=== PATIENT | female | born 1970 | race Caucasian/White ===

== ENCOUNTER 2017-06-09 08:40 | Inpatient (IN) | payer OTHER ==
[2017-06-09 09:08] LABS: ADD MAN DIFF? NO
[2017-06-09 09:11] LABS: BASO # 0.1 x10^3/uL (0.0-0.2); BASO % 1 % (0-3); EOS # 0.1 x10^3/uL (0.0-0.7); EOS % 1 % (0-3); HEMOGLOBIN 15.1 g/dL (12.0-15.5); LYMPH # 2.3 x10^3/uL (1.0-4.8); LYMPH % 22 % (24-48); MEAN CORPUSCULAR HEMOGLOBIN 31 pg (25-35); MEAN CORPUSCULAR HGB CONC 34 g/dL (31-37); MEAN CORPUSCULAR VOLUME 90 fL (79-100); MONO # 0.8 x10^3/uL (0.0-1.1); MONO % 8 % (0-9); NEUT % 68 % (31-73); PLATELET COUNT 251 x10^3/uL (140-400); RED BLOOD COUNT 4.88 x10^6/uL (3.50-5.40); RED CELL DISTRIBUTION WIDTH 12.8 % (11.5-14.5); WHITE BLOOD COUNT 10.2 x10^3/uL (4.0-11.0)
[2017-06-09 09:13] LABS: BILIRUBIN,URINE NEGATIVE (NEG); CLARITY,URINE CLEAR; COLOR,URINE YELLOW; GLUCOSE,URINE NEGATIVE (NEG); NITRITE,URINE NEGATIVE (NEG); PROTEIN,URINE NEGATIVE (NEG-TRACE); UROBILINOGEN,URINE 0.2 mg/dL (0.2 mg/dL)
[2017-06-09] MEDS: ONDANSETRON PF 4 MG/2 ML VIAL. IV ×2 (09:18→12:14)
[2017-06-09] MEDS: FAMOTIDINE 20 MG/2 ML VIAL IVP (09:18)
[2017-06-09] MEDS: IV NORMAL SALINE 1000ML BAG 1,000 ML IV ×2 (09:18→12:14)
[2017-06-09] MEDS: fentaNYL PF VIAL 100 MCG/2 ML VIAL IV ×5 (09:19→20:12)
[2017-06-09 09:20] LABS: AMPHETAMINE/METHAMPHETAMINE NEG (NEG); ANION GAP 11 (6-14); BARBITURATES NEG (NEG); BENZODIAZEPINES NEG (NEG); BLOOD UREA NITROGEN 17 mg/dL (7-20); BUN/CREATININE RATIO 19 (6-20); CALCIUM 9.1 mg/dL (8.5-10.1); CANNABINOIDS POS (NEG); CARBON DIOXIDE 27 mmol/L (21-32); CHLORIDE 102 mmol/L (98-107); COCAINE NEG (NEG); CREATININE 0.9 mg/dL (0.6-1.0); ETHANOL, URINE NEG (NEG); GFR 67.1; GLUCOSE 89 mg/dL (70-99); METHADONE NEG (NEG); OPIATES NEG (NEG); PHENCYCLIDINE NEG (NEG); POTASSIUM 3.7 mmol/L (3.5-5.1); SODIUM 140 mmol/L (136-145)
[2017-06-09 09:22] LABS: ETHANOL < 10 mg/dL (0-10)
[2017-06-09 09:23] LABS: BACTERIA,URINE 0 /HPF (0-FEW); RBC,URINE 0 /HPF (0-2); SQUAMOUS EPITHELIAL CELL,UR MANY /LPF; WBC,URINE 0 /HPF (0-4)
[2017-06-09 09:26] LABS: ALK PHOS 96 U/L (46-116); ALT (SGPT) 20 U/L (14-59); AST (SGOT) 14 U/L (15-37); LIPASE 133 U/L (73-393); TOTAL BILIRUBIN 0.4 mg/dL (0.2-1.0); TOTAL PROTEIN 7.9 g/dL (6.4-8.2)
[2017-06-09 11:56] LABS: PLT ESTIMATE ADEQUATE (ADEQUATE)
[2017-06-09] MEDS ORDERED: ceFAZolin 2GM PREMIX 2 GM/50 ML BAG IV (12:00)
[2017-06-09] MEDS: PANTOPRAZOLE IV PUSH 40 MG VIAL. IVP (17:48)
[2017-06-10] MEDS: fentaNYL PF VIAL 100 MCG/2 ML VIAL IV ×5 (00:16→09:47)
[2017-06-10] MEDS: IV NORMAL SALINE 1000ML BAG 1,000 ML IV ×3 (03:53→20:03)
[2017-06-10 05:08] LABS: ADD MAN DIFF? NO
[2017-06-10 05:17] LABS: BASO # 0.1 x10^3/uL (0.0-0.2); BASO % 1 % (0-3); EOS # 0.2 x10^3/uL (0.0-0.7); EOS % 2 % (0-3); HEMATOCRIT 37.3 % (36.0-47.0); HEMOGLOBIN 12.6 g/dL (12.0-15.5); LYMPH # 2.1 x10^3/uL (1.0-4.8); LYMPH % 27 % (24-48); MEAN CORPUSCULAR HEMOGLOBIN 31 pg (25-35); MEAN CORPUSCULAR HGB CONC 34 g/dL (31-37); MEAN CORPUSCULAR VOLUME 92 fL (79-100); MONO # 0.8 x10^3/uL (0.0-1.1); MONO % 10 % (0-9); NEUT # 4.7 x10^3uL (1.8-7.7); NEUT % 60 % (31-73); PLATELET COUNT 178 x10^3/uL (140-400); RED BLOOD COUNT 4.07 x10^6/uL (3.50-5.40); RED CELL DISTRIBUTION WIDTH 12.5 % (11.5-14.5); WHITE BLOOD COUNT 7.9 x10^3/uL (4.0-11.0)
[2017-06-10 05:54] LABS: ALK PHOS 69 U/L (46-116); ALT (SGPT) 15 U/L (14-59); ANION GAP 7 (6-14); AST (SGOT) 11 U/L (15-37); BLOOD UREA NITROGEN 14 mg/dL (7-20); BUN/CREATININE RATIO 18 (6-20); CALCIUM 8.3 mg/dL (8.5-10.1); CARBON DIOXIDE 26 mmol/L (21-32); CHLORIDE 110 mmol/L (98-107); CREATININE 0.8 mg/dL (0.6-1.0); GFR 76.9; GLUCOSE 92 mg/dL (70-99); SODIUM 143 mmol/L (136-145); TOTAL BILIRUBIN 0.4 mg/dL (0.2-1.0); TOTAL PROTEIN 5.9 g/dL (6.4-8.2)
[2017-06-10] MEDS ORDERED: SURGICEL HEMOSTAT 2X3 EACH. (06:04)
[2017-06-10] MEDS ORDERED: fentaNYL PF VIAL 100 MCG/2 ML VIAL IV ×2 (07:00)
[2017-06-10] MEDS ORDERED: LIDOCAINE 1% PF 2 ML VIAL. ID (07:00)
[2017-06-10] MEDS ORDERED: ONDANSETRON PF 4 MG/2 ML VIAL. IV ×2 (07:00→14:00)
[2017-06-10] MEDS: PANTOPRAZOLE IV PUSH 40 MG VIAL. IVP ×2 (07:30→11:17)
[2017-06-10] MEDS ORDERED: fentaNYL PF VIAL 100 MCG/2 ML VIAL (07:42)
[2017-06-10] MEDS ORDERED: MIDAZOLAM HCL/PF 2 MG/2 ML VIAL. (07:42)
[2017-06-10] MEDS ORDERED: PROPOFOL 20 ML IV (07:42)
[2017-06-10] MEDS ORDERED: ONDANSETRON PF 4 MG/2 ML VIAL. (07:42)
[2017-06-10] MEDS ORDERED: DEXAMETHASONE SOD PHOS 20 MG/5 ML VIAL. (07:42)
[2017-06-10] MEDS ORDERED: SUCCINYLCHOLINE 200 MG/10 ML VIAL. (07:43)
[2017-06-10] MEDS ORDERED: ROCURONIUM 50 MG/5 ML VIAL. (07:43)
[2017-06-10] MEDS: BUPIVACAINE-EPI 0.25%-1:200000 50 ML VIAL. (08:30)
[2017-06-10] MEDS: IOHEXOL 300 MG/ML 100ML VIAL. (08:30)
[2017-06-10] MEDS: BISACODYL 10 MG SUPP.RECT. (08:30)
[2017-06-10] MEDS: HEPARIN for IV BOLUS 10,000 UNIT/10 ML VIAL. (08:30)
[2017-06-10] MEDS ORDERED: NEOSTIGMINE 10 MG/10 ML VIAL. (08:50)
[2017-06-10] MEDS ORDERED: KETOROLAC 30 MG/ML INJ FOR OR. INJ ×2 (08:50→09:22)
[2017-06-10] MEDS ORDERED: GLYCOPYRROLATE 1 MG/5 ML VIAL. (08:50)
[2017-06-10] MEDS ORDERED: 0.9 % SODIUM CHLORIDE 10 ML DISP.SYRIN. IV (09:15)
[2017-06-10] MEDS ORDERED: KETOROLAC 15 MG/ML VIAL. IV (09:15)
[2017-06-10] MEDS ORDERED: DEXTROSE 50% 25 GM / 50ML DISP.SYRIN. IV (09:15)
[2017-06-10] MEDS ORDERED: SEVOFLURANE 61 TO 120 MINUTES. IH (09:22)
[2017-06-10] MEDS: PROCHLORPERAZINE 10 MG/2 ML VIAL. IV ×2 (09:32→09:56)
[2017-06-10] MEDS: IV RINGERS,LACTATED 1000ML 1,000 ML IV ×3 (09:32→20:08)
[2017-06-10] MEDS: MORPHINE SULFATE 4 MG/ML DISP.SYRIN. IV ×3 (09:56→18:43)
[2017-06-10] MEDS: HYDROcodone/APAP 5/325MG 1 TAB TABLET PO ×3 (13:31→21:44)
[2017-06-10] MEDS ORDERED: DOCUSATE SODIUM 100 MG CAPSULE. PO (14:00)
[2017-06-10] MEDS ORDERED: ACETAMINOPHEN 325 MG TABLET. PO (14:00)
[2017-06-10] MEDS ORDERED: MORPHINE SULFATE 4 MG/ML DISP.SYRIN. IV (14:00)
[2017-06-10] MEDS ORDERED: hydrALAZINE 20 MG/ML VIAL. IVP (14:00)
[2017-06-10] MEDS: LISINOPRIL 20 MG TABLET PO (14:56)
[2017-06-10] MEDS: hydroCHLOROthiazide 12.5 MG CAPSULE PO (14:56)
[2017-06-10] MEDS: DOCUSATE SODIUM 100 MG CAPSULE. PO (20:08)
[2017-06-10] MEDS ORDERED: NON FORMULARY ITEM (Omeprazole Magnesium (Prilosec Otc) 1 TAB) PO (21:00)
[2017-06-10] MEDS: ONDANSETRON PF 4 MG/2 ML VIAL. IV (21:46)
[2017-06-10] MEDS: ZOLPIDEM 5 MG TABLET. PO (23:41)
[2017-06-11] MEDS: HYDROcodone/APAP 5/325MG 1 TAB TABLET PO ×3 (04:12→20:46)
[2017-06-11] MEDS: IV RINGERS,LACTATED 1000ML 1,000 ML IV (05:10)
[2017-06-11 05:38] LABS: BASO % 0 % (0-3); EOS % 0 % (0-3); HEMATOCRIT 38.1 % (36.0-47.0); HEMOGLOBIN 12.5 g/dL (12.0-15.5); LYMPH # 1.5 x10^3/uL (1.0-4.8); LYMPH % 7 % (24-48); MEAN CORPUSCULAR HEMOGLOBIN 30 pg (25-35); MEAN CORPUSCULAR HGB CONC 33 g/dL (31-37); MEAN CORPUSCULAR VOLUME 91 fL (79-100); MONO # 1.4 x10^3/uL (0.0-1.1); MONO % 6 % (0-9); NEUT # 19.1 x10^3uL (1.8-7.7); NEUT % 87 % (31-73); PLATELET COUNT 219 x10^3/uL (140-400); RED CELL DISTRIBUTION WIDTH 12.5 % (11.5-14.5)
[2017-06-11 05:44] LABS: ADD MAN DIFF? YES
[2017-06-11 05:52] LABS: ANION GAP 8 (6-14); BLOOD UREA NITROGEN 13 mg/dL (7-20); CALCIUM 9.1 mg/dL (8.5-10.1); CARBON DIOXIDE 29 mmol/L (21-32); CHLORIDE 103 mmol/L (98-107); CREATININE 0.9 mg/dL (0.6-1.0); GFR 67.1; GLUCOSE 128 mg/dL (70-99); POTASSIUM 3.5 mmol/L (3.5-5.1); SODIUM 140 mmol/L (136-145)
[2017-06-11] MEDS: DOCUSATE SODIUM 100 MG CAPSULE. PO ×2 (09:21→20:46)
[2017-06-11] MEDS: hydroCHLOROthiazide 12.5 MG CAPSULE PO (09:21)
[2017-06-11] MEDS: LISINOPRIL 20 MG TABLET PO (09:22)
[2017-06-11] MEDS: MORPHINE SULFATE 4 MG/ML DISP.SYRIN. IV (09:27)
[2017-06-11] MEDS: ONDANSETRON PF 4 MG/2 ML VIAL. IV ×2 (10:02→18:02)
[2017-06-11 10:17] LABS: % ATYL 1 % (0-0); % BANDS 15 % (0-9); % LYMPHS 8 % (24-48); % MONOS 4 % (0-10); % SEGS 72 % (35-66); PLT ESTIMATE ADEQUATE (ADEQUATE)
[2017-06-11] MEDS: IV NORMAL SALINE 1000ML BAG 1,000 ML IV (17:20)
[2017-06-11] MEDS: diphenhydrAMINE HCL 25 MG CAPSULE PO (17:59)
[2017-06-12] MEDS: HYDROcodone/APAP 5/325MG 1 TAB TABLET PO (04:42)
[2017-06-12 05:20] LABS: ADD MAN DIFF? NO
[2017-06-12 05:35] LABS: BASO # 0.1 x10^3/uL (0.0-0.2); BASO % 1 % (0-3); EOS # 0.2 x10^3/uL (0.0-0.7); EOS % 1 % (0-3); HEMATOCRIT 35.4 % (36.0-47.0); LYMPH # 2.9 x10^3/uL (1.0-4.8); LYMPH % 23 % (24-48); MEAN CORPUSCULAR HEMOGLOBIN 31 pg (25-35); MEAN CORPUSCULAR HGB CONC 34 g/dL (31-37); MEAN CORPUSCULAR VOLUME 91 fL (79-100); MONO % 8 % (0-9); NEUT # 8.4 x10^3uL (1.8-7.7); NEUT % 67 % (31-73); PLATELET COUNT 197 x10^3/uL (140-400); RED CELL DISTRIBUTION WIDTH 12.5 % (11.5-14.5); WHITE BLOOD COUNT 12.6 x10^3/uL (4.0-11.0)
[2017-06-12] MEDS: IV NORMAL SALINE 1000ML BAG 1,000 ML IV ×2 (06:07→10:36)
[2017-06-12] MEDS: traMADol 50 MG TABLET PO (09:14)
[2017-06-12] MEDS: DOCUSATE SODIUM 100 MG CAPSULE. PO (09:14)
[2017-06-12] MEDS: PANTOPRAZOLE 40 MG TABLET.DR. PO (09:14)
[2017-06-12] MEDS: LISINOPRIL 20 MG TABLET PO (09:15)
[2017-06-12] MEDS: hydroCHLOROthiazide 12.5 MG CAPSULE PO (09:15)
== END 2017-06-12 13:05 | disposition home or self-care (01) | DRG 417 ==
LOC: ER 08:40 → 4 NORTH 11:17
PROC: 0FT44ZZ Resection of Gallbladder, Percutaneous Endoscopic Approach (ICD-10-PCS; principal; 2017-06-10 08:00)
PROC: BF101ZZ Fluoroscopy of Bile Ducts using Low Osmolar Contrast (ICD-10-PCS; 2017-06-10 08:00)
DX: K82.8 Other specified diseases of gallbladder (principal); K83.1 Obstruction of bile duct; K81.1 Chronic cholecystitis; F12.90 Cannabis use, unspecified, uncomplicated; F17.210 Nicotine dependence, cigarettes, uncomplicated; F41.9 Anxiety disorder, unspecified; I10 Essential (primary) hypertension; K21.9 Gastro-esophageal reflux disease without esophagitis; Z90.710 Acquired absence of both cervix and uterus; Z88.8 Allergy status to other drugs, medicaments and biological substances
CPT/HCPCS: 36415; 74300; 80048; 80053; 80307; 81001; 83690; 85007; 85025; 88304; 96361; 96374; 96375; 99285; 99285-25; C9113; G0480; J0330; J0690; J0780; J1100; J1644; J1885; J2250; J2270; J2405; J2704; J2710; J3010; J3490; J7030; J7120; Q0163; Q9967; S0028

== ENCOUNTER → 2020-06-10 | Outpatient (CLI) | payer OTHER ==
[2017-06-12 11:00] VITALS: BP 107/79
[~2020-06-10] MED LIST: HYDR-2761 PO; HYDR12.575 PO; LIDOCAINE 2%/EPI 1:100,000 20 ML VIAL. INJ ONE; LISI1TAB37 PO; OMEP20TA63 PO; ONDA8TAB9 PO
--- NOTE | 2020-06-10 17:38 | RAD ---
Examination: 1. Right breast stereotactic biopsy. 2. Right postprocedure mammogram INDICATION: 50-year-old woman with a mildly suspicious 1.1 cm mass in the superior posterior right br east, referred for stereotactic biopsy due to poor visibility on ultrasound. COMPARISON: Bilateral mammogram of 05/21/2020 and right breast ultrasound of 05/21/2020. TECHNIQUE AND FINDINGS: Informed consent was obtained and an appropriate procedural pause observed. Using standard sterile te chnique, stereotactic mammographic imaging guidance and local anesthesia, multiple vacuum assisted co re biopsy samples of the mass in the posterior superior right breast were obtained. A rizwan-shaped biopsy marker was placed in the biopsy cavity and hemostasis assured with direct breast compression for several minutes. Since the biopsy target was a mass, the specimen was not radiographed. It was placed in formalin and sent for histologic analysis. A two-view postprocedure right mammogram showed satisfactory deployment of the biopsy marker in the a kris of targeted biopsy. Postbiopsy changes were also evident superior right breast biopsy tract. Like ly reflects combination of administered local anesthetic and postbiopsy hemorrhage. Puncture site was dressed and postprocedure instructions were provided prior to patient discharge fro m imaging suite. She tolerated the procedure without difficulty. IMPRESSION: Successful stereotactic biopsy of the mass in the posterior superior right breast with successful dep loyment of the biopsy marker at the biopsy site and evidence of post biopsy changes in the superior r ight breast. Pathology results are pending. An addendum will be issued after pathology results become available. Electronically signed by: Leigh Ann Gan MD (06/10/2020 5:35 PM) [id number]
--- NOTE | 2020-06-15 18:13 | PATHOLOGY ---
[facility] Accession Number: [id number] . 01 Material submitted: . breast - RIGHT BREAST. Modifiers: right . 01 Clinical history: . PRE-OPERATIVE DIAGNOSIS: NODULE RIGHT BREAST OPERATIVE PROCEDURE: RIGHT BREAST STEREOTATIC POST-OPERATIVE DIAGNOSIS: PENDING . 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 See comment. (JPM:[place] 06/15/2020) [facility] 06/15/2020 0853 Local . 02 Comment: Sections of the right breast nodule stereotactic needle biopsy reveal breast tissue showing a complex of small cysts. Several small cysts contain intraductal micropapillomas. There is extensive apocrine metaplasia. A panel of immunoperoxidase stains is obtained and yields the following results: . . Smooth muscle myosin heavy chain (A2): Highlights myoepithelial cells within cysts and intraductal micropapillomas. P63 (A2): Highlights myoepithelial cells within small and intraductal micropapillomas. CK5/6 (A2): Highlights myoepithelial cells within cysts and intraductal micropapillomas; apocrine metaplastic epithelial cells negative. . There is no atypia or evidence of malignancy. (JPM:[facility] 06/15/2020) . Special stains performed: Immunoperoxidase stains for CK5/6, p63 and smooth muscle myosin heavy chain all on A2. . 02 Electronically signed: . Eleuterio Steiner MD, Pathologist NPI- [id number] . 01 Gross description: . The specimen is received in formalin, labeled "Irais Martin, right breast". Received are multiple cores of fibrofatty tissue measuring 4.2 x 4.0 x 0.7 cm in aggregate dimensions. The specimen is submitted entirely in cassettes A1 through A4. The cold ischemic time is 10 minutes. The total formalin for Station time is 12 hours and 10 minutes. (CAA; 06/10/2020) QAC/QAC 06/10/2020 1537 Local . 02 Pathologist provided ICD-10: N60.81, N60.01 . 02 CPT . 210028, B82009, [id number] Specimen Comment: A courtesy copy of this report has been sent to [phone], [phone] Specimen Comment: [id number] Specimen Comment: Report sent to / DR JONES Performed at: 01 [facility] [address], [place], [place] [id number] MD Devan Dumont MD Phone: [phone] Performed at: 02 [facility] [address], [place] [id number] MD Eleuterio Steiner MD Phone: [phone]
== END | disposition home or self-care (01) ==
LOC: MAMMO 07:56
PROVIDERS: ATTEND Surgery
DX: R92.8 Other abnormal and inconclusive findings on diagnostic imaging of breast (principal); I10 Essential (primary) hypertension; E78.00 Pure hypercholesterolemia, unspecified; K21.9 Gastro-esophageal reflux disease without esophagitis; F41.9 Anxiety disorder, unspecified; F17.210 Nicotine dependence, cigarettes, uncomplicated; Z90.710 Acquired absence of both cervix and uterus; Z98.890 Other specified postprocedural states; Z79.899 Other long term (current) drug therapy; Z72.89 Other problems related to lifestyle; Z88.5 Allergy status to narcotic agent
CPT/HCPCS: 19081; 77065; J3490